=== PATIENT | male | born 1945 | race Caucasian/White ===

== ENCOUNTER 2016-11-18 10:58 | Inpatient (IN) | payer OTHER ==
[2016-11-18 11:52] VITALS: BMI 30.8
--- NOTE | 2016-11-18 13:46 | HP ---
CIWA Score - CIWA Score Nausea/Vomitin Muscle Tremors: 3 Anxiety: 3 Agitation: 3 Paroxysmal Sweats: 1-Minimal Palms Moist Orientation: 0-Oriented Tacttile Disturbances: 2-Mild Itch/Numbness/Burn Auditory Disturbances: 2-Mild Harshness/Frighten Visual Disturbances: 2-Mild Sensitivity Headache: 2-Mild CIWA-Ar Total Score: 21 Admission ROS BHS - HPI Chief Complaint: I NEED HELP TO STOP DRINKING ALCOHOL Allergies/Adverse Reactions: Allergies Allergy/AdvReac Type Severity Reaction Status Date / Time No Known Allergies Allergy Verified 11/18/16 12:36 History of Present Illness: THIS 71 YEARS OLD MALE WITH ALCOHOL DEPENDENCE,SEEKING DETOX,FROM ALCOHOL,LAST TREATMENT IN 1995 IN [facility] ALCOHOL RELATED HTN,ATRIAL FIBRILLATION S/P LEFT HIP REPLACEMENT LAST 08/10 ARTHRITIS OF RIGHT HIP,AMBULATION WITH CANE LONGEST PERIOD OF SOBRIETY 21 YEARS Exam Limitations: No Limitations - Ebola screening Have you traveled outside of the country in the last 21 days: No Have you had contact with anyone from an Ebola affected area: No Have you been sick,other than usual withdrawal symptoms: No Do you have a fever: No - Review of Systems Constitutional: Loss of Appetite, Changes in sleep, Weakness EENT: reports: Nose Congestion Respiratory: reports: Other Cardiac: reports: Palpitations, Other (ATRIAL FIBRILLATION) GI: reports: Diarrhea, Nausea, Vomiting, Abdominal cramping : reports: No Symptoms Reported Musculoskeletal: reports: Back Pain, Muscle Pain Integumentary: reports: Dryness Neuro: reports: Headache, Tremors Endocrine: reports: No Symptoms Reported Hematology: reports: No Symptoms Reported Psychiatric: reports: Judgement Intact, Mood/Affect Appropiate, Orientated x3 ( INSOMNIA), Anxious, Depressed Patient History - Patient Medical History Hx Anemia: No Hx Asthma: No Hx Chronic Obstructive Pulmonary Disease (COPD): No Hx Cancer: No Hx Cardiac Disorders: Yes (ATRIAL FIBRILLATION) Hx Hypertension: Yes Hx Hypercholesterolemia: Yes (NO MED) Hx Pacemaker: No HX Cerebrovascular Accident: No Hx Seizures: No Hx Dementia: No Hx Diabetes: No Hx Gastrointestinal Disorders: No Hx Liver Disease: No Hx Genitourinary Disorders: No Hx Sexually Transmitted Disorders: No Hx Renal Disease (ESRD): No Hx Thyroid Disease: No Hx Human Immunodeficiency Virus (HIV): Yes (20 YEARS AGO NEGATIVE) Hx Hepatitis C: No Hx Depression: Yes (ANXIETY,INSOMNIA) Hx Suicide Attempt: No Hx Bipolar Disorder: No Hx Schizophrenia: No Other Medical History: NO SUCIDAL,NO HOMICIDDAL,S/P LEFT HIP REPLACEMENT, ARHRITIS RIGHT HIP,CANE - Patient Surgical History Past Surgical History: No Hx Neurologic Surgery: No Hx Cataract Extraction: No Hx Cardiac Surgery: No Hx Lung Surgery: No Hx Breast Surgery: No Hx Breast Biopsy: No Hx Abdominal Surgery: No Hx Appendectomy: No Hx Cholecystectomy: No Hx Genitourinary Surgery: No Hx Section: No Hx Orthopedic Surgery: Yes (LEFT HIP RPLACEMENT IN 2016) Anesthesia Reaction: No - PPD History Previous Implant?: Yes Documented Results: Negative w/o proof Implanted On Prior R Admission?: No PPD to be Administered?: Yes - Smoking Cessation Smoking history: Current every day smoker Have you smoked in the past 12 months: Yes Aproximately how many cigarettes per day: 20 Hx Chewing Tobacco Use: No Initiated information on smoking cessation: Yes 'Breaking Loose' booklet given: 11/18/16 - Substance & Tx. History Hx Alcohol Use: Yes Hx Substance Use: No Substance Use Type: Alcohol Hx Substance Use Treatment: Yes (IN 1995 ) - Substances Abused Alcohol Route: Oral Frequency: Daily Amount used: LIQUOR- 2 PINTS Age of first use: 16 Date of Last Use: 11/17/16 Family Disease History - Family Disease History Family History: Denies Admission Physical Exam BHS - Vital Signs Vital Signs: Vital Signs - 24 hr 11/18/16 11:16 Temperature 96 F L Pulse Rate 84 Respiratory 18 Rate Blood Pressure 152/92 - Physical General Appearance: Yes: Moderate Distress, Tremorous, Irritable, Sweating, Anxious HEENTM: Yes: Hearing grossly Normal, Normal ENT Inspection, Normocephalic, Pharynx Normal Respiratory: Yes: Lungs Clear, Normal Breath Sounds, No Respiratory Distress Neck: Yes: Within Normal Limits, Supple, Trachea in good position Breast: Yes: Within Normal Limits Cardiology: Yes: Within Normal Limits, Regular Rhythm, Regular Rate, S1, S2 Abdominal: Yes: Within Normal Limits, Normal Bowel Sounds, Non Tender, Flat, Soft Genitourinary: Yes: Within Normal Limits Back: Yes: Muscle Spasm Musculoskeletal: Yes: Back pain, Muscle Pain Extremities: Yes: Tremors, Other (S/P LEFT HIP REPLACEMENT) Neurological: Yes: hand drawer in helper II-XII NML intact, Fully Oriented, Alert, Motor Strength 5/5 Integumentary: Yes: Dry Lymphatic: Yes: Within Normal Limits - Diagnostic (1) Alcohol dependence with uncomplicated withdrawal Current Visit: Yes Status: Acute (2) Essential hypertension Current Visit: Yes Status: Acute (3) Insomnia secondary to depression with anxiety Current Visit: Yes Status: Acute (4) History of left hip replacement Current Visit: Yes Status: Acute (5) Arthritis of right hip Current Visit: Yes Status: Acute (6) Atrial fibrillation Current Visit: Yes Status: Acute (7) Use of cane as ambulatory aid Current Visit: Yes Status: Acute Cleared for Admission [facility] - Detox or Rehab [facility] Level of Care: Medically Managed Detox Regimen/Protocol: Librium [facility] Breath Alcohol Content Breath Alcohol Content: 0 Urine Drug Screen - Results Drug Screen Negative: No Urine Drug Screen Results: BZO-Benzodiazepines, MTD-Methadone, TCA-Tricyclic Antidepress
[2016-11-18] MEDS ORDERED: guaiFENesin/D-METHORPHAN HB 10 ML UNIT-DOSE CUPS PO PRN (14:02)
[2016-11-18] MEDS ORDERED: chlordiazePOXIDE HCL 25 MG CAPSULE PO ONE (14:02)
[2016-11-18] MEDS ORDERED: MAGNESIUM HYDROX 2400MG/30ML ORAL SUSPENSION 30 ML CUP PO PRN (14:02)
[2016-11-18] MEDS ORDERED: IBUPROFEN 400 MG TABLET (FP) PO PRN (14:02)
[2016-11-18] MEDS ORDERED: MENTHOL/PHENOL 1 EACH UD MM PRN (14:02)
[2016-11-18] MEDS ORDERED: hydrOXYzine PAMOATE 50 MG CAPSULE (FP) PO PRN (14:02)
[2016-11-18] MEDS ORDERED: MAG HYDROX/AL HYDROX/SIMETH 30 ML UNIT-DOSE CUP PO PRN (14:02)
[2016-11-18] MEDS ORDERED: ACETAMINOPHEN 325 MG TABLET (FP) PO PRN (14:02)
[2016-11-18] MEDS ORDERED: P-EPHED 60MG/TRIPROLIDI 2.5MG TABLET PO PRN (14:02)
[2016-11-18] MEDS ORDERED: MAGNESIUM CITRATE 300 ML BOTTLE PO PRN (14:02)
[2016-11-18] MEDS ORDERED: chlordiazePOXIDE HCL 25 MG CAPSULE PO PRN (14:02)
[2016-11-18] MEDS: NICOTINE 21 MG/24 HOURS TOPICAL PATCH TD SCH (15:28)
[2016-11-18] MEDS: chlordiazePOXIDE HCL 25 MG CAPSULE PO SCH ×2 (17:53→22:32)
[2016-11-18 21:21] LABS: URINE APPEARANCE SLCLOUDY; URINE BILIRUBIN NEGATIVE (NEGATIVE); URINE BLOOD NEGATIVE (NEGATIVE); URINE COLOR YELLOW; URINE GLUCOSE (UA) NEGATIVE (NEGATIVE); URINE KETONE NEGATIVE (NEGATIVE); URINE LEUK ESTERASE NEGATIVE (NEGATIVE); URINE NITRITE NEGATIVE (NEGATIVE)
[2016-11-18 21:22] LABS: URINE PROTEIN 1+ (NEGATIVE)
[2016-11-18 22:05] LABS: URINE HYALINE CAST 5 /lpf; URINE MUCUS RARE; URINE RBC 3 /hpf (0-3); URINE WBC 3 /hpf (3-5)
[2016-11-18] MEDS: diphenhydrAMINE HCL 50 MG CAPSULE PO PRN (22:32)
[2016-11-18] MEDS: THIAMINE HCL 100 MG TABLET (FP) PO SCH (22:32)
[2016-11-19] MEDS: chlordiazePOXIDE HCL 25 MG CAPSULE PO SCH ×4 (06:23→22:01)
[2016-11-19 10:13] LABS: MCH 32.8 pg (25.7-33.7); MCHC 32.9 g/dl (32.0-35.9); MEAN CELL VOLUME 99.8 fl (80-96); MEAN PLT VOLUME 7.7 fl (7.5-11.1); PLATELET COUNT 211 K/MM3 (134-434); RDW 16.2 % (11.9-15.9); WHITE BLOOD COUNT 7.2 K/mm3 (4.0-10.0)
[2016-11-19 10:31] LABS: ALBUMIN 2.8 g/dl (3.4-5.0); ALK PHOS 86 U/L (45-117); ANION GAP 4 (8-16); BILIRUBIN,TOTAL 0.6 mg/dL (0.2-1.0); CALCIUM 8.9 mg/dL (8.5-10.1); CO2 38 mmol/L (21-32); CREATININE 0.6 mg/dL (0.7-1.3); GLUCOSE,RANDOM 111 mg/dL (74-106); SGOT/AST 19 U/L (15-37); SGPT/ALT 21 U/L (12-78)
--- NOTE | 2016-11-19 10:31 | PN ---
S CIWA - CIWA Score Nausea/Vomitin Muscle Tremors: 3 Anxiety: 3 Agitation: 3 Paroxysmal Sweats: 1-Minimal Palms Moist Orientation: 0-Oriented Tacttile Disturbances: 1-Very Mild Itch/Numbness Auditory Disturbances: 1-Very Mild Visual Disturbances: 1-Very Mild Sensitivity Headache: 2-Mild CIWA-Ar Total Score: 18 S Progress Note (SOAP) Subjective: ALERT,IRRITABLE,ANXIOUS,INTERRUPTED SLEEP,TREMOR Objective: 11/19/16 10:28 Vital Signs Temperature 96.4 F L 11/19/16 06:39 Pulse Rate 102 H 11/19/16 10:00 Respiratory Rate 18 11/19/16 10:00 Blood Pressure 144/70 11/19/16 10:00 O2 Sat by Pulse Oximetry (%) EKG ATRIAL FIBRILLATION 90/MIN Laboratory Last Values WBC 7.2 K/mm3 (4.0-10.0) 11/19/16 07:50 RBC 4.26 M/mm3 (4.00-5.60) 11/19/16 07:50 Hgb 14.0 GM/dL (11.7-16.9) 11/19/16 07:50 Hct 42.5 % (35.4-49) 11/19/16 07:50 MCV 99.8 fl (80-96) H 11/19/16 07:50 MCH 32.8 pg (25.7-33.7) 11/19/16 07:50 MCHC 32.9 g/dl (32.0-35.9) 11/19/16 07:50 RDW 16.2 % (11.9-15.9) H 11/19/16 07:50 Plt Count 211 K/MM3 (134-434) 11/19/16 07:50 MPV 7.7 fl (7.5-11.1) 11/19/16 07:50 Sodium 143 mmol/L (136-145) 11/19/16 07:50 Potassium 3.2 mmol/L (3.5-5.1) L 11/19/16 07:50 Chloride 101 mmol/L (98-107) 11/19/16 07:50 Urine Color Yellow 11/18/16 15:25 Urine Appearance Slcloudy 11/18/16 15:25 Urine pH 6.0 (5.0-8.0) 11/18/16 15:25 Urine Protein 1+ (NEGATIVE) H 11/18/16 15:25 Urine Glucose (UA) Negative (NEGATIVE) 11/18/16 15:25 Urine Ketones Negative (NEGATIVE) 11/18/16 15:25 Urine Blood Negative (NEGATIVE) 11/18/16 15:25 Urine Nitrite Negative (NEGATIVE) 11/18/16 15:25 Urine Bilirubin Negative (NEGATIVE) 11/18/16 15:25 Urine Urobilinogen 2.0 mg/dL (0.2-1.0) 11/18/16 15:25 Urine RBC 3 /hpf (0-3) 11/18/16 15:25 Urine WBC 3 /hpf (3-5) 11/18/16 15:25 Ur Epithelial Cells Moderate /hpf (FEW) 11/18/16 15:25 Triple Phos Crystals Rare /hpf (NONE SEEN) 11/18/16 15:25 Hyaline Casts 5 /lpf 11/18/16 15:25 Urine Mucus Rare 11/18/16 15:25 LABS PENDING Assessment: 11/19/16 10:30 WITHDRAWAL SYMPTOM Plan: CONTINUE DETOX
[2016-11-19] MEDS: PRENATAL VITAMINS W/ FOLIC ACID TABLET (FP) PO SCH (10:39)
[2016-11-19] MEDS: METOPROLOL TARTRATE 50 MG TABLET (FP) PO SCH (10:39)
[2016-11-19] MEDS: NICOTINE 21 MG/24 HOURS TOPICAL PATCH TD SCH (10:39)
[2016-11-19] MEDS: ASPIRIN 81 MG CHEWABLE TABLETS PO SCH (10:39)
[2016-11-19] MEDS: LOPERAMIDE HCL 2 MG CAPSULE PO PRN (10:40)
--- NOTE | 2016-11-19 11:27 | EKG ---
Test Reason : Blood Pressure : / mmHG Vent. Rate : 090 BPM Atrial Rate : 092 BPM P-R Int : 000 ms QRS Dur : 090 ms QT Int : 388 ms P-R-T Axes : 000 -05 042 degrees QTc Int : 474 ms ATRIAL FIBRILLATION ABNORMAL ECG NO PREVIOUS ECGS AVAILABLE Confirmed by JOSEPH COSBY MD ([id number]) on 11/19/2016 11:27:33 AM Referred By: Confirmed By:JOSEPH COSBY MD
[2016-11-19] MEDS: diphenhydrAMINE HCL 50 MG CAPSULE PO PRN (22:01)
[2016-11-19] MEDS: THIAMINE HCL 100 MG TABLET (FP) PO SCH (22:01)
[2016-11-20] MEDS: chlordiazePOXIDE HCL 25 MG CAPSULE PO SCH ×2 (05:48→10:54)
--- NOTE | 2016-11-20 08:56 | PN ---
S CIWA - CIWA Score Nausea/Vomitin Muscle Tremors: 4-Moderate,w/Arms Extend Anxiety: 3 Agitation: 4-Moderately Restless Paroxysmal Sweats: 3 Orientation: 0-Oriented Tacttile Disturbances: 1-Very Mild Itch/Numbness Auditory Disturbances: 0-None Visual Disturbances: 0-None Headache: 1-Very Mild CIWA-Ar Total Score: 19 BHS Progress Note (SOAP) Subjective: nausea, sweats, interrupted sleep, anxiety, tremors Objective: 11/20/16 08:55 Vital Signs - 8 hr 11/20/16 11/20/16 03:30 06:45 Temperature 96.6 F L Pulse Rate 87 Respiratory 18 18 Rate Blood Pressure 126/81 Laboratory Tests 11/18/16 11/19/16 11/19/16 15:25 07:50 07:50 WBC 7.2 RBC 4.26 Hgb 14.0 Hct 42.5 MCV 99.8 H MCH 32.8 MCHC 32.9 RDW 16.2 H Plt Count 211 MPV 7.7 Sodium 143 Potassium 3.2 L Chloride 101 Carbon Dioxide 38 H Anion Gap 4 L BUN 8 Creatinine 0.6 L Creat Clearance w eGFR > 60 Random Glucose 111 H Calcium 8.9 Total Bilirubin 0.6 AST 19 ALT 21 Alkaline Phosphatase 86 Total Protein 6.0 L Albumin 2.8 L Urine Color Yellow Urine Appearance Slcloudy Urine pH 6.0 Ur Specific [place] 1.020 Urine Protein 1+ H Urine Glucose (UA) Negative Urine Ketones Negative Urine Blood Negative Urine Nitrite Negative Urine Bilirubin Negative Urine Urobilinogen 2.0 Urine RBC 3 Urine WBC 3 Ur Epithelial Cells Moderate Triple Phos Crystals Rare Hyaline Casts 5 Urine Mucus Rare RPR Titer 11/19/16 07:50 WBC RBC Hgb Hct MCV MCH MCHC RDW Plt Count MPV Sodium Potassium Chloride Carbon Dioxide Anion Gap BUN Creatinine Creat Clearance w eGFR Random Glucose Calcium Total Bilirubin AST ALT Alkaline Phosphatase Total Protein Albumin Urine Color Urine Appearance Urine pH Ur Specific [place] Urine Protein Urine Glucose (UA) Urine Ketones Urine Blood Urine Nitrite Urine Bilirubin Urine Urobilinogen Urine RBC Urine WBC Ur Epithelial Cells Triple Phos Crystals Hyaline Casts Urine Mucus RPR Titer Nonreactive Laboratory Tests 11/18/16 11/19/16 11/19/16 15:25 07:50 07:50 WBC 7.2 RBC 4.26 Hgb 14.0 Hct 42.5 MCV 99.8 H MCH 32.8 MCHC 32.9 RDW 16.2 H Plt Count 211 MPV 7.7 Sodium 143 Potassium 3.2 L Chloride 101 Carbon Dioxide 38 H Anion Gap 4 L BUN 8 Creatinine 0.6 L Creat Clearance w eGFR > 60 Random Glucose 111 H Calcium 8.9 Total Bilirubin 0.6 AST 19 ALT 21 Alkaline Phosphatase 86 Total Protein 6.0 L Albumin 2.8 L Urine Color Yellow Urine Appearance Slcloudy Urine pH 6.0 Ur Specific [place] 1.020 Urine Protein 1+ H Urine Glucose (UA) Negative Urine Ketones Negative Urine Blood Negative Urine Nitrite Negative Urine Bilirubin Negative Urine Urobilinogen 2.0 Urine RBC 3 Urine WBC 3 Ur Epithelial Cells Moderate Triple Phos Crystals Rare Hyaline Casts 5 Urine Mucus Rare RPR Titer 11/19/16 07:50 WBC RBC Hgb Hct MCV MCH MCHC RDW Plt Count MPV Sodium Potassium Chloride Carbon Dioxide Anion Gap BUN Creatinine Creat Clearance w eGFR Random Glucose Calcium Total Bilirubin AST ALT Alkaline Phosphatase Total Protein Albumin Urine Color Urine Appearance Urine pH Ur Specific [place] Urine Protein Urine Glucose (UA) Urine Ketones Urine Blood Urine Nitrite Urine Bilirubin Urine Urobilinogen Urine RBC Urine WBC Ur Epithelial Cells Triple Phos Crystals Hyaline Casts Urine Mucus RPR Titer Nonreactive Assessment: 11/20/16 08:55 withdrawal sx Plan: cont detox, fluids, ambien for sleep. encourage ambulation
[2016-11-20] MEDS: LOPERAMIDE HCL 2 MG CAPSULE PO PRN (09:18)
[2016-11-20] MEDS: POTASSIUM CHLORIDE TABS 20 MEQ TABLET.ER (FP) PO SCH ×2 (10:54→22:16)
[2016-11-20] MEDS: METOPROLOL TARTRATE 50 MG TABLET (FP) PO SCH (10:54)
[2016-11-20] MEDS: NICOTINE 21 MG/24 HOURS TOPICAL PATCH TD SCH (10:54)
[2016-11-20] MEDS: PRENATAL VITAMINS W/ FOLIC ACID TABLET (FP) PO SCH (10:54)
[2016-11-20] MEDS: ASPIRIN 81 MG CHEWABLE TABLETS PO SCH (10:54)
[2016-11-20] MEDS: chlordiazePOXIDE 5 MG CAPSULE PO SCH ×2 (17:37→22:16)
[2016-11-20] MEDS: ZOLPIDEM TARTRATE 5 MG TABLET PO PRN (22:16)
[2016-11-20] MEDS: THIAMINE HCL 100 MG TABLET (FP) PO SCH (22:16)
[2016-11-21] MEDS: chlordiazePOXIDE 5 MG CAPSULE PO SCH ×2 (05:51→10:57)
[2016-11-21] MEDS: NICOTINE 21 MG/24 HOURS TOPICAL PATCH TD SCH (10:45)
[2016-11-21] MEDS: PRENATAL VITAMINS W/ FOLIC ACID TABLET (FP) PO SCH (10:57)
[2016-11-21] MEDS: METOPROLOL TARTRATE 50 MG TABLET (FP) PO SCH (10:57)
[2016-11-21] MEDS: POTASSIUM CHLORIDE TABS 20 MEQ TABLET.ER (FP) PO SCH ×2 (10:57→22:33)
[2016-11-21] MEDS: ASPIRIN 81 MG CHEWABLE TABLETS PO SCH (10:57)
--- NOTE | 2016-11-21 11:30 | PN ---
S Progress Note (SOAP) Subjective: ALERT,IRRITABLE,ANXIOUS,INTERRUPTED SLEEP, Objective: 11/21/16 11:29 Vital Signs Temperature 98.3 F 11/21/16 10:38 Pulse Rate 100 H 11/21/16 10:38 Respiratory Rate 16 11/21/16 10:38 Blood Pressure 141/100 11/21/16 10:38 O2 Sat by Pulse Oximetry (%) Assessment: 11/21/16 11:29 WITHDRAWAL SYMPTOM Plan: CONTINUE DETOX,DISCHARGE IN AM
[2016-11-21] MEDS: chlordiazePOXIDE HCL 10 MG CAPSULE PO SCH ×2 (17:02→22:34)
[2016-11-21] MEDS: THIAMINE HCL 100 MG TABLET (FP) PO SCH (22:33)
[2016-11-21] MEDS: ZOLPIDEM TARTRATE 5 MG TABLET PO PRN (22:33)
[2016-11-22] MEDS: chlordiazePOXIDE HCL 10 MG CAPSULE PO SCH (06:09)
[2016-11-22 06:51] VITALS: BP 126/86; PULSE 101; TEMP 97.6
--- NOTE | 2016-11-22 08:08 | DS ---
[facility] Detox Discharge Summary Admission Date: 11/18/16 Discharge Date: 11/22/16 - History Present History: Alcohol Dependence Additional Comments: FOLLOW UP WITH AFTER CARE PROGRAM ARRANGEMENT Pertinent Past History: ESSENTIAL HYPERTENSION S/P LEFT HIP REPLACEMENT ARTHRITIS OF RIGHT HIP ATRIAL FIBRILLATION USE OF CANE FOR AMBULATORY AID - Physical Exam Results Vital Signs: Vital Signs Temperature 97.6 F 11/22/16 06:51 Pulse Rate 101 H 11/22/16 06:51 Respiratory Rate 18 11/22/16 06:51 Blood Pressure 126/86 11/22/16 06:51 O2 Sat by Pulse Oximetry (%) Pertinent Admission Physical Exam Findings: WITHDRAWAL FINDING - Treatment Hospital Course: Detox Protocol Followed, Detoxed Safely, Responded well, Discharged Condition Good Patient has Accepted a Rehab Referral to: DECLINED - Medication Discharge Medications: Ambulatory Orders Aspirin [ASA -] 81 mg PO DAILY 11/18/16 Metoprolol Tartrate [Lopressor -] 50 mg PO DAILY 11/18/16 - Diagnosis (1) Alcohol dependence with uncomplicated withdrawal Current Visit: Yes Status: Acute (2) Essential hypertension Current Visit: Yes Status: Acute (3) Insomnia secondary to depression with anxiety Current Visit: Yes Status: Acute (4) History of left hip replacement Current Visit: Yes Status: Acute (5) Arthritis of right hip Current Visit: Yes Status: Acute (6) Atrial fibrillation Current Visit: Yes Status: Acute (7) Use of cane as ambulatory aid Current Visit: Yes Status: Acute - AMA Did Patient Leave Against Medical Advice: No
--- NOTE | 2016-11-22 08:18 | PN ---
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
[2016-11-22] MEDS: POTASSIUM CHLORIDE TABS 20 MEQ TABLET.ER (FP) PO SCH (09:24)
[2016-11-22] MEDS: ASPIRIN 81 MG CHEWABLE TABLETS PO SCH (09:24)
[2016-11-22] MEDS: PRENATAL VITAMINS W/ FOLIC ACID TABLET (FP) PO SCH (09:25)
[2016-11-22] MEDS: METOPROLOL TARTRATE 50 MG TABLET (FP) PO SCH (09:25)
== END 2016-11-22 09:51 | disposition home or self-care (01) | DRG 897 ==
LOC: YASAS 10:58 → EDBD 12:57 → Y6N 12:57
PROVIDERS: ADMIT Internal Medicine; ATTEND Internal Medicine
PROC: HZ2ZZZZ Detoxification Services for Substance Abuse Treatment (ICD-10-PCS; principal; 2016-11-18)
DX: F10.230 Alcohol dependence with withdrawal, uncomplicated (principal); F17.210 Nicotine dependence, cigarettes, uncomplicated; F41.8 Other specified anxiety disorders; I10 Essential (primary) hypertension; I48.91 Unspecified atrial fibrillation; R26.2 Difficulty in walking, not elsewhere classified; E87.6 Hypokalemia; F51.05 Insomnia due to other mental disorder; Z21 Asymptomatic human immunodeficiency virus [HIV] infection status; Z99.89 Dependence on other enabling machines and devices; Z96.642 Presence of left artificial hip joint; M13.852 Other specified arthritis, left hip
CPT/HCPCS: 36415; 80053; 81003; 81015; 85027; 86593; 93005; 93010